=== PATIENT | female | born 1940 | race Caucasian/White ===

== ENCOUNTER 2025-07-19 06:48 | Outpatient (NON) | payer OTHER, SELFPAY ==
[2025-07-19 08:36] LABS: Hematocrit 38.9 % (35.0-42.0); Hemoglobin 12.8 g/dL (11.7-13.8); Mean Corpuscular HGB Conc 32.9 g/dL (32-36); Mean Corpuscular Hemoglobin 30.5 pg (27.0-31.0); Mean Corpuscular Volume 92.8 fL (78.0-102.0); Platelet Count Result 222 K/mm3 (150-420); Red Blood Count 4.19 M/mm3 (4.20-5.40); White Blood Count 6.5 K/mm3 (4.8-10.8)
[2025-07-19 09:44] LABS: Alanine Aminotransferase 10 U/L (6-35); Albumin Level 3.3 g/dL (3.5-5.1); Alkaline Phosphatase 67 U/L (38-126); Anion Gap 6 mmol/L (4-12); Aspartate Amino Transferase 20 U/L (14-36); Bilirubin,Total 0.6 mg/dL (0.2-1.3); Blood Urea Nitrogen 23 mg/dL (7-17); Calcium 9.4 mg/dL (8.4-10.2); Carbon Dioxide 30 mmol/L (22-30); Chloride 107 mmol/L (98-107); Cholesterol 106 mg/dL (0-200); Estimated Glomerular Filt Rate 30; Glucose 125 mg/dL (65-110); HDL Direct 30 mg/dL; Osmolality Calculated 300 mOsm/kg (285-295); Potassium 4.0 mmol/L (3.4-5.0); Sodium 143 mmol/L (137-145); Total Protein 6.0 g/dL (6.3-8.2); Triglycerides 114 mg/dL (<150)
[2025-07-19 10:30] LABS: Thyroid Stimulating Hormone < 0.015 uIU/mL (0.465-4.680)
[2025-07-19 10:47] LABS: Hemoglobin A1C 6.8 % (<5.7)
[2025-07-19 10:48] LABS: Vitamin B12 > 1000.0 pg/mL (239-931)
== END 2025-07-19 06:49 | disposition home or self-care (01) ==
DX: E11.29 Type 2 diabetes mellitus with other diabetic kidney complication (principal); F01.B0 Vascular dementia, moderate, without behavioral disturbance, psychotic disturbance, mood disturbance, and anxiety; I12.9 Hypertensive chronic kidney disease with stage 1 through stage 4 chronic kidney disease, or unspecified chronic kidney disease; N18.31 Chronic kidney disease, stage 3a; E55.9 Vitamin D deficiency, unspecified
CPT/HCPCS: 36415; 80053; 80061; 82607; 82746; 83036; 84436; 84443; 85027

== ENCOUNTER 2025-09-25 20:45 | Emergency (ER) | payer MEDICARE, SELFPAY ==
--- NOTE | ~2025-09-25 | CT_ITS ---
CT cervical spine wo con HISTORY: fall/NO NECK COMPLAINTS COMPARISON: None TECHNIQUE: Axial images of the cervical spine were obtained. Multiplanar reconstruction in the coronal, sagittal and axial reformats to evaluate for cervical fracture. FINDINGS: The images demonstrate no acute fracture or paravertebral soft tissue swelling. Degenerative changes with disc bulging and uncovertebral hypertrophy most significant at C5-C6 causing severe right neural foraminal stenosis. The visualized aspect of the upper lungs are clear. IMPRESSION: No acute fracture or subluxation. All CT scans at this facility are performed using low dose modulation techniques as appropriate to perform exam including the following: automated exposure control; adjustment of the mA and/or kV according to patient size (this includes techniques or standardized protocols for targeted exams where does is matched to indication/reason for exam; i.e. extremities or head); use of iterative reconstruction technique). Reviewed, dictated and finalized at location S. IMPRESSION: No acute fracture or subluxation. All CT scans at this facility are performed using low dose modulation techniqu es as appropriate to perform exam including the following: automated exposure c ontrol; adjustment of the mA and/or kV according to patient size (this includes techniques or standardized protocols for targeted exams where does is matched to indication/reason for exam; i.e. extremities or head); use of iterative jennifer nstruction technique).
--- NOTE | ~2025-09-25 | CT_ITS ---
CT brain wo con HISTORY:FALL/HIT SUPERIOR HEAD COMPARISON: None. TECHNIQUE: Axial images were obtained of the head without intravenous contrast. FINDINGS: No acute intracranial hemorrhage, mass effect or midline shift. No extra-axial fluid collections. 11 x 8 mm calcification in the left farideh is noted. There are chronic white matter microangiopathic changes in the supratentorial white matter. There is partially calcified mass within the left temporal lobe fossa measuring 1.6 x 1.5 cm. There is a calcified mass within left frontal region measuring 7.9 x 9.7 mm. This may represent a meningioma. These masses could be further evaluated with MRI.Visualized paranasal sinuses and mastoid air cells are clear. IMPRESSION: No acute intracranial hemorrhage or extra axial fluid collections. Partially calcified mass within the left temporal fossa. Calcification within the left frontal region measuring 7.9 x 9.7 mm. Calcification in the left farideh are noted. All CT scans at this facility are performed using low dose modulation techniques as appropriate to perform exam including the following: automated exposure control; use of iterative reconstruction technique; adjustment of the mA and/or kV according to patient size (this includes techniques or standardized protocols for targeted exams where dose is matched to indication/reason for exam). Reviewed, dictated and finalized at location S. IMPRESSION: No acute intracranial hemorrhage or extra axial fluid collections. Partially calcified mass within the left temporal fossa. Calcification within the left frontal region measuring 7.9 x 9.7 mm. Calcification in the left farideh are noted. All CT scans at this facility are performed using low dose modulation techniqu es as appropriate to perform exam including the following: automated exposure c ontrol; use of iterative reconstruction technique; adjustment of the mA and/or kV according to patient size (this includes techniques or standardized protocol s for targeted exams where dose is matched to indication/reason for exam).
[2025-09-25 20:50] VITALS: BP 122/64; PULSE 73; RESP 18; TEMP 36; O2SAT 95
--- NOTE | 2025-09-25 20:57 | ED.FALL ---
HPI - Fall General Chief Complaint: Fall Stated Complaint: fall Time Seen by Provider: 09/25/25 20:57 Source: patient and EMS Mode of arrival: ambulatory Limitations: no limitations History of Present Illness HPI Narrative: 85-year-old female, [facility] resident witha history of vascular dementia, hypertension, CVA with right-sided weakness, dyslipidemia, diabetes mellitus, CKD was [facility] in from the [facility] after she fell and brush the top of her head against the dresser. The patient did not fall to the ground. No other injuries noted. No abrasion or bruising noted on the top of the head. Denied any headache or vomiting. The patient has chronic right-sided weakness and and no new neuro deficits noted. No ENT bleeding. No hip pain Patient is not ambulatory. When she got up from the wheelchair she fell forwards and scraped the top of her head. MD complaint: fall Onset (ago): hour(s) (1 hour ago) Fall witnessed: yes, by living facility staff Place fall occurred: [facility] Loss of consciousness: none Prolonged down time: no Symptoms prior to fall: none Context: tripped/slipped Location of injury: head Associated symptoms (after fall): unable to walk Review of Systems Constitutional: Constitutional: Reports as per HPI and Reports no additional constitutional complaints Eyes: Eyes: Reports as per HPI and Reports no additional eye complaints ENT: Reports system reviewed and no additional complaints, except as documented and Reports as per HPI Cardiovascular: Cardiovascular: Reports as per HPI and Reports no additional cardiovascular complaints Respiratory: Respiratory: Reports as per HPI and Reports no additional respiratory complaints Gastrointestinal: Gastrointestinal: Reports as per HPI and Reports no additional gastrointestinal complaints Genitourinary: Genitourinary: Reports no additional female genitourinary complaints and Reports as per HPI Musculoskeletal: Musculoskeletal: Reports no additional musculoskeletal complaints and Reports as per HPI Integumentary/Breasts: Skin/Breast: Reports system reviewed and no additional complaints, except as docu and Reports as per HPI Neurologic: Reports system reviewed and no additional complaints, except as documented and Reports as per HPI Endocrine: Endocrine: Reports no additional endocrine complaints and Reports as per HPI Hematologic/Lymphatic: Hematologic/Lymphatic: Reports no additional hematologic/lymphatic complaints and Reports as per HPI Allergic/Immunologic: Allergic/Immunologic: Reports no additional allergic/immunologic complaints and Reports as per HPI Exam Narrative: Vitals are stable. Oxygen saturation of 95% on room air. Pulse of 73 and a blood pressure of 122/64. Const: General: no acute distress Nutritional Appearance: well nourished Orientation/consciousness: patient oriented x3 Limitations: no limitations HENMT: Head: normal to inspection Ears: external ears normal Face/Nose/Sinus: Normal external nose present and Normal nares present Face and sinus: normal facial exam Mouth: Yes Normal oral and palatal mucosa present Throat: posterior oropharynx normal Eyes: Conjunctivae: conjunctivae normal Pupils: Equal, round and reactive pupils present EOM: EOMs intact bilaterally Direct Ophthalmoscopy: no photophobia Neck: Neck: normal visual inspection, no lymphadenopathy and no meningeal signs Other: No spinal tenderness noted. Chest: Chest palpation & inspection: normal inspection of the chest Resp: Effort & Inspection: normal respiratory effort Auscultation: clear to auscultation bilaterally Cardio: Rate: regular rate Rhythm: regular rhythm GI: Auscultation: normal bowel sounds Other: No tenderness/rigidity/rebound. : General: Yes no CVA tenderness Back/Spine/Pelvis: Back: no CVA tenderness Skin: General skin exam: normal color Rashes: no rashes Wounds: no wounds Neuro: General: moves all extremities and no meningeal signs Other: Right hemiplegia. Extrem: General: normal to inspection and no clubbing, cyanosis or edema Psych: Mental Status: mental status grossly normal Course Course Emergency Course: Accidental fall from the wheelchair. Head injury--CT of the C-spine did not show any acute findings. CT of the head did not show any acute findings. The patient has a partially calcified mass within the left temporal fossa, left frontal and the left farideh. The patient does not have any additional symptoms. No new neuro deficits noted. Discussed with her sons who do not itch see any difference in behavior. [facility] to the [facility] Vital Signs Vital signs: Vital Signs Temperature 36.0 C L 09/25/25 20:50 Pulse Rate 73 09/25/25 20:50 Respiratory Rate 18 09/25/25 20:50 Blood Pressure 122/64 09/25/25 20:50 Pulse Oximetry 95 09/25/25 20:50 Oxygen Delivery Room Air 09/25/25 20:50 Temperature 36.0 C L 09/25/25 20:50 Pulse Rate 73 09/25/25 20:50 Respiratory Rate 18 09/25/25 20:50 Blood Pressure 122/64 09/25/25 20:50 Pulse Oximetry 95 09/25/25 20:50 Oxygen Delivery Room Air 09/25/25 20:50 MDM - Fall MDM Narrative Medical decision making narrative: Accidental fall Head injury Differential Diagnosis Differential diagnosis: Likely concussion with loss of consciousness and concussion without loss of consciousness Medical Records Attestation: I reviewed the patient's medical records. Discharge Plan Discharge Clinical Impression: Accidental fall Qualifiers: Encounter type: initial encounter Qualified Code(s): W19.XXXA - Unspecified fall, initial encounter Head injury Qualifiers: Encounter type: initial encounter Qualified Code(s): S09.90XA - Unspecified injury of head, initial encounter Patient Disposition: Home Condition: Stable Instructions: Antibiotic Form, Fall Prevention for Older Adults (ED), Head Injury (ED) Patient Language: [place] Follow-up/Referrals: UNKNOWN,DOCTOR [Non-Staff] Time of Disposition: 22:10
--- NOTE | 2025-09-25 22:29 | PC.NURSE ---
attempted to call report to [facility], no answer, will try again.
--- NOTE | 2025-09-25 22:44 | PC.NURSE ---
attempted to call [facility] again for report, still no answer.
--- NOTE | 2025-09-25 23:03 | PC.NURSE ---
Finally got gregoria of [place] to give report. Report given to MIRIAM Trevizo.
--- NOTE | 2025-09-26 01:53 | PC.NURSE ---
[facility] requesting DC paperwork to be faxed over to them. DC paperwork was faxed at 00:15.
== END 2025-09-25 22:38 ==
PROVIDERS: Emergency Provider Internal Medicine Critical Care Medicine; PCP Internal Medicine
DX: S09.90XA Unspecified injury of head, initial encounter (principal); E11.22 Type 2 diabetes mellitus with diabetic chronic kidney disease; I12.9 Hypertensive chronic kidney disease with stage 1 through stage 4 chronic kidney disease, or unspecified chronic kidney disease; N18.9 Chronic kidney disease, unspecified; E78.5 Hyperlipidemia, unspecified; W01.190A Fall on same level from slipping, tripping and stumbling with subsequent striking against furniture, initial encounter
CPT/HCPCS: 70450; 72125; 99284

== ENCOUNTER 2025-11-18 06:49 | Outpatient (NON) | payer MEDICARE, SELFPAY ==
[2025-11-18 07:15] LABS: Add Urine Microscopic? NO; Appearance Urine Clear (Clear); Glucose Urine UA Negative (Negative); Hematocrit 36.8 % (35.0-42.0); Hemoglobin 11.6 g/dL (11.7-13.8); Leukocyte Esterase Ur Negative (Negative); Mean Corpuscular HGB Conc 31.5 g/dL (32-36); Mean Corpuscular Hemoglobin 30.0 pg (27.0-31.0); Mean Corpuscular Volume 95.1 fL (78.0-102.0); Nitrate Urine Negative (Negative); Platelet Count Result 209 K/mm3 (150-420); Red Blood Count 3.87 M/mm3 (4.20-5.40); Specific Grav Ur <= 1.005 (1.010-1.020); White Blood Count 6.1 K/mm3 (4.8-10.8)
== END 2025-11-18 06:50 | disposition home or self-care (01) ==
PROVIDERS: PCP Internal Medicine; Visit Provider Internal Medicine
DX: I12.9 Hypertensive chronic kidney disease with stage 1 through stage 4 chronic kidney disease, or unspecified chronic kidney disease (principal); N18.31 Chronic kidney disease, stage 3a; R80.9 Proteinuria, unspecified
CPT/HCPCS: 36415; 81003; 85027; 87086